=== PATIENT | male | born 1985 | race African-American/Black ===

== ENCOUNTER → 2019-08-19 | Outpatient (REF) | payer OTHER ==
[~2019-08-19] MED LIST: CLIN300C5
== END ==
LOC: M SFHCLERA 17:54
PROVIDERS: ATTEND Physician Assistant
DX: L02.93 Carbuncle, unspecified (principal)
CPT/HCPCS: 87070; 87088; 87186; G0463

== ENCOUNTER 2019-08-20 21:08 | Emergency (ER) | payer OTHER, SELFPAY ==
[~2019-08-20] VITALS: Ht 182.9 cm; Wt 140.8 kg
[2019-08-20] MEDS ORDERED: CLINDAMYCIN 300 MG in IV 1 EA IV ONE (21:45)
[2019-08-20] MEDS ORDERED: KETOROLAC 30 MG/ML VIAL (J1885) IV ONE (21:45)
[2019-08-20 22:54] LABS: BASO % 0.3 % (0.0-1.0); EOS # 0.3 10^3/uL (0.0-0.5); EOS % 2.8 % (0.0-3.0); LYMPH # 2.8 10^3/uL (1.5-5.0); MEAN CORPUSCULAR HEMOGLOBIN 27.6 pg (27.0-33.0); MEAN CORPUSCULAR HGB CONC 30.2 g/dl (32.0-36.5); MEAN CORPUSCULAR VOLUME 91.3 fl (80.0-96.0); MONO % 10.6 % (0.0-5.0); NEUTROPHILS # 4.9 10^3/uL (1.5-8.5); NEUTROPHILS % 53.8 % (36.0-66.0); PLATELET COUNT, AUTOMATED 331 10^3/uL (150-450); RED BLOOD COUNT 4.71 10^6/uL (4.30-6.10); WHITE BLOOD COUNT 9.1 10^3/uL (4.0-10.0)
[2019-08-20 23:17] LABS: ALBUMIN 3.6 GM/DL (3.2-5.2); ALT/SGPT 31 U/L (12-78); BILIRUBIN,DIRECT 0.2 MG/DL (0.0-0.2); BILIRUBIN,TOTAL 0.4 MG/DL (0.2-1.0); BLOOD UREA NITROGEN 14 MG/DL (7-18); C REACTIVE PROTEIN QUANTITATIV 1.32 MG/DL (0.00-0.30); CALCIUM LEVEL 9.2 MG/DL (8.5-10.1); CARBON DIOXIDE LEVEL 29 MEQ/L (21-32); CHLORIDE LEVEL 110 MEQ/L (98-107); CREATININE FOR GFR 1.16 MG/DL (0.70-1.30); GLOMERULAR FILTRATION RATE > 60.0 (>60); GLUCOSE, FASTING 90 MG/DL (70-100); SODIUM LEVEL 143 MEQ/L (136-145); TOTAL PROTEIN 7.5 GM/DL (6.4-8.2)
[2019-08-20] MEDS ORDERED: CLIN300C5 (23:34)
[2019-08-20 23:48] LABS: ERYTHROCYTE SEDIMENTATION RATE 24 mm/hr (0-15)
[2019-08-20 23:56] VITALS: BP 118/69
== END 2019-08-21 00:28 | disposition home or self-care (01) ==
LOC: EEVIPCON 21:08 → M ED 21:08
DX: L03.116 Cellulitis of left lower limb (principal); J45.909 Unspecified asthma, uncomplicated; F17.200 Nicotine dependence, unspecified, uncomplicated
CPT/HCPCS: 36415; 80048; 80076; 83605; 85025; 85652; 86140; 96365; 96375; 99284; J1885

== ENCOUNTER 2020-02-28 21:02 | Emergency (ER) | payer OTHER, SELFPAY ==
[~2020-02-28] VITALS: Ht 182.9 cm; Wt 147.0 kg
[2020-02-28] MEDS ORDERED: SING10TA32 PO (21:28)
[2020-02-28] MEDS ORDERED: ADV500INH INH (21:28)
[2020-02-28] MEDS ORDERED: ALBU8.5H INH (21:28)
[2020-02-28] MEDS ORDERED: BACT800T5 PO (22:43)
[2020-02-28] MEDS ORDERED: BACTRIM 160MG/800MG DS TAB PO ONE (22:45)
[2020-02-28 23:24] VITALS: BP 128/81
== END 2020-02-28 23:25 | disposition home or self-care (01) ==
LOC: M ED 21:02
DX: L03.116 Cellulitis of left lower limb (principal); J45.909 Unspecified asthma, uncomplicated; F17.200 Nicotine dependence, unspecified, uncomplicated

== ENCOUNTER → 2020-03-20 | Outpatient (CLI) | payer OTHER ==
[~2020-03-20] MED LIST changes: +ADV500INH INH; +ALBU8.5H INH; +BACT800T5 PO; +SING10TA32 PO
== END ==
LOC: M LABSMTC 14:29
PROVIDERS: ATTEND Family Medicine
DX: Z11.59 Encounter for screening for other viral diseases (principal)

== ENCOUNTER 2020-07-10 21:44 | Emergency (ER) | payer OTHER ==
[~2020-07-10] VITALS: Ht 182.9 cm; Wt 145.3 kg
[~2020-07-10 21:44] MED LIST changes: -CLIN300C5; +CLIN300C6
[2020-07-10 21:46] VITALS: BP 132/61
[2020-07-10] MEDS ORDERED: LIDOCAINE 1% MDV 20ML VIAL SC ONE (23:15)
[2020-07-10] MEDS ORDERED: CLEO300C2 PO (23:55)
[2020-07-10] MEDS ORDERED: HYDR-3713 PO (23:55)
[2020-07-11] MEDS ORDERED: NORCO 5/325MG TABLET (BULK FOR ED) PO ONE
[2020-07-11] MEDS ORDERED: CLINDAMYCIN 150MG CAPSULE PO ONE
== END 2020-07-11 00:05 | disposition home or self-care (01) ==
LOC: M ED 21:44
DX: L02.214 Cutaneous abscess of groin (principal); J45.909 Unspecified asthma, uncomplicated; F17.200 Nicotine dependence, unspecified, uncomplicated; Z79.899 Other long term (current) drug therapy; Z91.013 Allergy to seafood

== ENCOUNTER → 2020-10-26 | Outpatient (CLI) | payer SELFPAY ==
[~2020-10-26] MED LIST changes: +CLEO300C2 PO; +HYDR-3713 PO
== END ==
LOC: M LABSMTC 09:41
PROVIDERS: ATTEND Pediatrics
DX: Z20.822 Contact with and (suspected) exposure to COVID-19 (principal)

== ENCOUNTER 2020-11-09 22:35 | Emergency (ER) | payer OTHER ==
[~2020-11-09] VITALS: Ht 182.9 cm; Wt 154.5 kg
[2020-11-09] MEDS ORDERED: vitamin D PO (22:43)
[2020-11-09] MEDS ORDERED: FLON1SPR NARES (22:43)
[2020-11-10] MEDS ORDERED: methylPREDNISolone 125MG 2ML VIAL IV ONE (01:05)
[2020-11-10] MEDS ORDERED: NS 1,000 ML IV ONE (01:05)
[2020-11-10] MEDS ORDERED: ALBUTEROL 90 MCG/ACT 8GM HFA INHALER INH ONE (01:05)
[2020-11-10] MEDS ORDERED: IBUPROFEN 800 MG TAB PO ONE (01:10)
[2020-11-10 01:38] LABS: BASO # 0.1 10^3/uL (0.0-0.2); BASO % 0.7 % (0.0-1.0); EOS # 0.2 10^3/uL (0.0-0.5); EOS % 2.1 % (0.0-3.0); HEMATOCRIT 44.3 % (42.0-52.0); HEMOGLOBIN 14.2 g/dl (13.5-17.5); LYMPH # 0.6 10^3/uL (1.5-5.0); MEAN CORPUSCULAR HEMOGLOBIN 28.1 pg (27.0-33.0); MEAN CORPUSCULAR HGB CONC 32.1 g/dl (32.0-36.5); MEAN CORPUSCULAR VOLUME 87.7 fl (80.0-96.0); MONO # 1.4 10^3/uL (0.0-0.8); MONO % 18.5 % (2.0-8.0); NEUTROPHILS # 5.3 10^3/uL (1.5-8.5); NEUTROPHILS % 69.5 % (36.0-66.0); PLATELET COUNT, AUTOMATED 249 10^3/uL (150-450); RED BLOOD COUNT 5.05 10^6/uL (4.30-6.10); WHITE BLOOD COUNT 7.7 10^3/uL (4.0-10.0)
[2020-11-10 02:04] LABS: ALBUMIN 3.9 GM/DL (3.2-5.2); BILIRUBIN,DIRECT 0.1 MG/DL (0.0-0.2); BILIRUBIN,TOTAL 0.6 MG/DL (0.2-1.0); TOTAL PROTEIN 7.7 GM/DL (6.4-8.2)
[2020-11-10] MEDS ORDERED: PRED20TA PO (03:17)
[2020-11-10 03:48] VITALS: BP 120/74
--- NOTE | 2020-11-10 03:51 | REPVR ---
PROCEDURE INFORMATION: Exam: XR Chest Exam date and time: 11/10/2020 1:05 AM Age: 35 years old Clinical indication: Other: Dyspnea/cough TECHNIQUE: Imaging protocol: XR of the chest. Views: 1 view. COMPARISON: No relevant prior studies available. FINDINGS: Lungs: Unremarkable. No consolidation. Pleural spaces: Unremarkable. No pleural effusion. No pneumothorax. Heart/Mediastinum: Unremarkable. No cardiomegaly. Bones/joints: Unremarkable. Soft tissues: There are moderately generous overlying soft tissues. IMPRESSION: Negative chest. Electronically signed by: Jamel Perez On 11/10/2020 03:51:18 AM
[2020-11-10] MEDS ORDERED: PRED10TA2 PO (05:12)
== END 2020-11-10 04:15 | disposition home or self-care (01) ==
LOC: M ED 22:35
DX: U07.1 COVID-19 (principal); J45.909 Unspecified asthma, uncomplicated; F17.200 Nicotine dependence, unspecified, uncomplicated; Z79.899 Other long term (current) drug therapy; Z91.013 Allergy to seafood
CPT/HCPCS: 71045; 80047; 80076; 85025; 87798; 94640; 99284; J2930

== ENCOUNTER 2020-11-10 03:35 | Outpatient (CLI) | payer OTHER ==
[2020-11-10] VITALS (7 sets, daily range): BP systolic 115–133; BP diastolic 61–69
[~2020-11-10] VITALS: Ht 182.9 cm; Wt 158.3 kg
[~2020-11-10 03:35] MED LIST changes: +FLON1SPR NARES; +PRED20TA PO; +vitamin D PO
[2020-11-10] MEDS ORDERED: NS 1,000 ML IV SCH (04:20)
--- NOTE | 2020-11-10 04:38 | CR.PDOC ---
General Date of Consultation: November 10, 2020 Consultation REASON FOR CONSULTATION/CHIEF COMPLAINT: COVID-19 positive, consult for monoclonal antibodies HISTORY OF PRESENT ILLNESS: 35-year-old male with a history of asthma and G6PD deficiency, presented to the ER with 24-hour history of shortness of breath, malaise and diaphoresis with subjective fevers and chills. He reports his children and [id number] sick at home with Covid. Patient also complaining of wheezing in the ER, was given one dose of IV Solu-Medrol which improved his breathing. Given the patient's obesity with BMI above 35. Patient is a candidate for monoclonal antibody infusion for Covid 19. Patient was given information on monoclonal antibodies and risks versus benefits. She'll questions in detail. Patient signed consent. ALLERGIES: Please see below. HOME MEDICATIONS: Please see below. PAST MEDICAL HISTORY: Asthma G6PD deficiency PAST SURGICAL HISTORY: non contributory FAMILY HISTORY: reviewed with patient, non contributory SOCIAL HISTORY: Patient denies smoking Patient denies etoh use Patient denies illicit drug use REVIEW OF SYSTEMS: 10 point ROS was completed, relevant findings are noted in the HPI PHYSICAL EXAMINATION: VITAL SIGNS: please see below General: NAD, comfortable, diaphoretic HEENT: PERRLA, EOMI, sclerae clear Neck: supple, normal ROM, no JVD Respiratory: lungs CTAB, no wheeze, no rales, no crackles CVS: RRR, normal S1, S2, no murmurs. Mild wheezing in bilateral lung bases. Abdo: soft, no masses, no hepatosplenomegaly, BS+, no rebound tenderness Extremities: no edema, pulses 2+ MSK: no joint deformities, normal ROM Neuro: no focal neuro deficits, moving all 4 extremities, CN2-12 intact. Strength 5/5 in all 4 extremities. No nystagmus. Psych: calm, cooperative, AAO x 3 LABORATORY DATA: Please see below. ASSESSMENT/PLAN: COVID-19 pna - patient given ibuprofen, solumedrol - Tmax 101.3. No WBC - fever improvement s/p ibuprofen - given elevated BMI, candidate for monoclonal antibody infusion. - explained risks vs benefits, answered all questions in detail - consent signed Asthma exacerbation - s/p IV solumedrol, albuterol - given mild wheezing will send RX for prednisone taper. Dispo: DC home after casirivimab infusion. Allergies Coded Allergies: shellfish derived (Verified Allergy, Intermediate, SWELLING, 02/28/20) Home Medications Scheduled Fluticasone Propionate (Flonase Allergy Relief) 9.9 Ml [place].susp, 2 SPRAY NARES DAILY for 30 Days, #9.9 (Reported) Montelukast Sodium (Singulair) 10 Mg Tablet, 10 MG PO DAILY for 30 Days, #30 (Reported) Prednisone (Prednisone) 20 Mg Tablet, 20 MG PO ASDIRECTED, #20 3 po day 1-3; 2 po day 4-7; 1 po day 8-10 Salmeterol/Fluticasone (Advair 500-50 Diskus) 1 Each Blst.w.dev, 1 PUFF INH BID for 30 Days, #1 (Reported) [vitamin D] , 1,250 UNITS PO QWEEK, (Reported) Miscellaneous Medications Albuterol Sulfate (Albuterol Sulfate Hfa) 8.5 Gm Hfa.aer.ad, 2 PUFFS INH, (Reported) ANALI DAVENPORT MD November 10, 2020 04:38
[2020-11-10] MEDS ORDERED: ALBUTEROL 90 MCG/ACT 8GM HFA INHALER INH PRN (05:00)
[2020-11-10] MEDS ORDERED: methylPREDNISolone 125MG 2ML VIAL IV PRN (05:00)
[2020-11-10] MEDS ORDERED: EPINEPHrine INJ 1 MG/ML 1ML AMP IM PRN (05:00)
[2020-11-10] MEDS ORDERED: ALBUTEROL SULFATE 2.5 MG/0.5 ML INH NEB SOLN INH PRN (05:00)
[2020-11-10] MEDS ORDERED: diphenhydrAMINE 50MG/ML VIAL (J1200) IV PRN (05:00)
[2020-11-10] MEDS ORDERED: CASIRIVIMAB (REGN10933) 1,200 MG, IMDEVIMAB (REGN10987) 1,200 MG in NS 230 ML IV ONE (05:00)
[2020-11-10] MEDS ORDERED: PRED10TA2 PO (05:12)
== END 2020-11-10 08:28 | disposition home or self-care (01) ==
LOC: M OPCLI4 03:35 → M 4MAIN 04:20 → M OPCLI4 08:28
PROVIDERS: ATTEND Family Medicine
DX: U07.1 COVID-19 (principal); Z91.013 Allergy to seafood

== ENCOUNTER → 2025-03-16 | Outpatient (RCR) ==
[~2025-03-16] MED LIST changes: -ADV500INH INH; +ADVA1AER10 INH; +CLIN-250; -CLIN300C6; +MONT-5 PO; +PRED10TA2 PO; -SING10TA32 PO
== END ==
LOC: M EMPSKH 03-05 13:20
PROVIDERS: ATTEND Family Medicine
DX: Z20.828 Contact with and (suspected) exposure to other viral communicable diseases (principal)